=== PATIENT | female | born 1985 | race Caucasian/White ===

== ENCOUNTER → 2016-11-12 | Outpatient (CLI) | payer OTHER ==
[~2016-11-12] MED LIST: ACET-2321 PO; BUPR300T59 PO; DIME240C2 PO; IBUP-1547 PO; PRED20TA PO; RANI150T7 PO; ROPI0.252 PO; TOPI50TA25 PO; [UNRECOGNIZED DRUG - OTHER] PO
--- NOTE | 2016-11-12 08:50 | DI ---
Indication: ITS.REASON: R10.2 PELVIC PAIN; N92.6; N92.0 IRREG, PERIODS PROCEDURE: US PELVIC NON OB W/TRANS VAG: Encounter: Initial Comparison: None FINDINGS: Transvaginal and transabdominal pelvic imaging was performed. The uterus measures 10.1 x 2.9 x 5.6 cm. The parenchyma is homogeneous without fibroids. The endometrial stripe measures 9 mm in thickness. There is no evidence of focal endometrial mass. Both ovaries are identified and normal in appearance. 1.8 cm cyst or follicle on the left and 2.4 cm cyst or follicle in the right ovary. The right ovary measures 2.6 x 1.9 x 4 cm. The left ovary measures 3.1 x 1.8 x 2.8 cm. There are no abnormal adnexal masses detected. Small amount of free pelvic fluid, probably physiologic. IMPRESSION: Unremarkable pelvic sonogram. .
== END ==
LOC: IMA 06:32
PROVIDERS: ATTEND Nurse Practitioner
DX: R10.2 Pelvic and perineal pain (principal); N92.6 Irregular menstruation, unspecified; N92.0 Excessive and frequent menstruation with regular cycle